=== PATIENT | male | born 1995 | race Caucasian/White ===

== ENCOUNTER 2019-05-21 20:09 | Emergency (ER) | payer OTHER ==
[2019-05-21] MEDS ORDERED: IBUPROFEN 800 MG TABLET PO STA (20:52)
[2019-05-21] MEDS ORDERED: ONDANSETRON ODT 4 MG TABLET TL STA (20:52)
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
[2019-05-21 21:32] VITALS: BP 134/76
== END 2019-05-21 21:35 | disposition home or self-care (01) ==
LOC: ED 20:09
DX: M54.2 Cervicalgia (principal); M54.9 Dorsalgia, unspecified; V43.52XA Car driver injured in collision with other type car in traffic accident, initial encounter; Y92.410 Unspecified street and highway as the place of occurrence of the external cause
CPT/HCPCS: 99282; 99284; A9270; Q0162